=== PATIENT | female | born 1970 | race Caucasian/White ===

== ENCOUNTER → 2018-07-31 10:14 | Outpatient (CLI) | payer OTHER, SELFPAY ==
--- NOTE | 2018-07-31 10:17 | DI.RAD.S_ITS ---
PROCEDURE: XR HIP W PEL IF DONE LT 2V INDICATIONS: Night sweats, Family Hx of Non-hodgkins lymphoma TECHNIQUE: AP pelvis with lateral view(s) of the left hip(s). COMPARISON: None. FINDINGS: Bones: No fractures or dislocations. Pelvic ring appears intact. No suspicious bony lesions. Moderate bilateral hip joint degeneration. Soft tissues: The visualized bowel gas pattern is normal. No suspicious soft tissue calcifications. IMPRESSION: Moderate bilateral hip joint degeneration. Dictated by: Elliott Toney M.D. on 07/31/2018 at 14:07 Approved by: Elliott Toney M.D. on 07/31/2018 at 14:09
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
== END ==
PROVIDERS: Family Provider Family Medicine; PCP Family Medicine; Visit Provider Family Medicine
DX: M25.552 Pain in left hip (principal); M16.0 Bilateral primary osteoarthritis of hip; R61 Generalized hyperhidrosis; Z80.7 Family history of other malignant neoplasms of lymphoid, hematopoietic and related tissues
CPT/HCPCS: 71046; 73502

== ENCOUNTER → 2018-08-01 09:10 | Outpatient (CLI) | payer OTHER, SELFPAY ==
[2018-08-01 10:10] LABS: Add Manual Diff / Slide Review NO; Basophils Absolute Auto 100 /uL (0-100); Basophils Percent Auto 1.7 % (0-2); Eosinophils Absolute Auto 100 /uL (0-450); Eosinophils Percent Auto 2.1 % (2-4); Hematocrit 43.3 % (36-46); Hemoglobin 14.1 g/dL (12.0-16.0); Lymphocytes Absolute Auto 1000 /uL (1100-4500); Mean Corpuscular HGB Conc 32.5 % (30-36); Mean Corpuscular Hemoglobin 28.9 PG (26-34); Mean Corpuscular Volume 88.7 fL (80-100); Monocytes Absolute Auto 300 /uL (0-900); Monocytes Percent Auto 9.6 % (3-14); Neutrophils Absolute Auto 2100 /uL (1500-7000); Neutrophils Percent Auto 58.6 % (50-75); Platelet Count 212 X10^3/uL (150-400); Red Blood Cell Count 4.88 X10^6/uL (4.0-5.2); White Blood Cell Count 3.6 X10^3/uL (4.5-11.0)
[2018-08-01 10:18] LABS: Alanine Aminotransferase 28 IU/L (9-52); Albumin 4.4 g/dL (3.5-5.0); Albumin Globulin Ratio 1.4 (1.0-2.8); Alkaline Phosphatase 62 U/L (38-126); Aspartate Aminotransferase 25 IU/L (14-36); BUN Creatinine Ratio 15.6 (6-22); Bilirubin Total 0.6 mg/dL (0.2-1.3); Blood Urea Nitrogen 14 mg/dL (7-17); Carbon Dioxide 28 mmol/L (22-32); Chloride 103 mmol/L (98-107); Estimated Glomerular Filt Rate > 60.0 mL/min (>60); Globulin 3.1 g/dL (1.7-4.1); Glucose 84 mg/dL (70-100); HEMOLYSIS < 15 (0-50); Potassium 4.2 mmol/L (3.4-5.1); Sodium 141 mmol/L (137-145); Total Protein 7.5 g/dL (6.3-8.2)
== END ==
PROVIDERS: PCP Family Medicine; Visit Provider Family Medicine
DX: R61 Generalized hyperhidrosis (principal); Z80.7 Family history of other malignant neoplasms of lymphoid, hematopoietic and related tissues
CPT/HCPCS: 36415; 80053; 85025

== ENCOUNTER → 2018-11-04 13:56 | Outpatient (CLI) | payer OTHER, SELFPAY ==
[2018-11-04 15:14] LABS: Influenza A and B by PCR Rapid Negative (Negative)
== END ==
PROVIDERS: PCP Family Medicine; Visit Provider Physician Assistant
DX: R68.89 Other general symptoms and signs (principal)
CPT/HCPCS: 87400

== ENCOUNTER → 2021-04-26 09:34 | Outpatient (CLI) | payer OTHER, SELFPAY ==
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
== END ==
PROVIDERS: PCP Family Medicine; Referring Provider Nurse Practitioner Family; Visit Provider Nurse Practitioner Family
DX: M47.814 Spondylosis without myelopathy or radiculopathy, thoracic region (principal)
CPT/HCPCS: 72072

== ENCOUNTER → 2022-12-27 11:21 | Outpatient (CLI) | payer OTHER, SELFPAY | PROVIDERS: PCP Nurse Practitioner; Visit Provider Nurse Practitioner | DX: N72 Inflammatory disease of cervix uteri (principal) | CPT/HCPCS: 87070; 87205 ==

== ENCOUNTER → 2023-01-07 10:40 | Outpatient (CLI) | payer OTHER, SELFPAY ==
--- NOTE | 2023-01-07 10:41 | DI.MG.S_ITS ---
BILATERAL DIGITAL SCREENING MAMMOGRAM 3D/2D WITH CAD: 01/07/2023 CLINICAL: Routine screening. Baseline exam. Family history of breast cancer. No prior exams were available for comparison. Both breasts are heterogeneously dense, which may obscure small masses (category c / 51-75% glandular tissue). Current study was also evaluated with a Computer Aided Detection (CAD) system. No significant masses, calcifications, or other findings are seen in either breast. IMPRESSION: NEGATIVE There is no mammographic evidence of malignancy. A 1 year screening mammogram is recommended. Based on Tyrer-Cuzick model (a risk assessment model), the patient's lifetime risk is 21.6% and her 10 year risk is 6.2%. If a patient has an elevated risk, a more comprehensive evaluation should be considered and/or a referral to a genetic counselor. The [place] [employer], [employer], and NCCN Guidelines advise the consideration of Breast MRI as an adjunct to screening mammography in patients whose Lifetime risk to develop breast cancer is 20% or higher. This exam was interpreted at Station ID: [id number]. NOTE: For mammograms, a report in lay terms will be sent to the patient. Approximately 15% of breast malignancies will not be visualized mammographically. In the management of a palpable breast mass, a negative mammogram must not discourage biopsy of a clinically suspicious lesion. Electronically Signed By: Mohsen whitney/jessica:01/09/2023 08:19:24 letter sent: Normal Exam ACR BI-RADS Category 1: Negative [id number]
== END ==
PROVIDERS: PCP Nurse Practitioner; Referring Provider Nurse Practitioner; Visit Provider Nurse Practitioner
DX: Z12.31 Encounter for screening mammogram for malignant neoplasm of breast (principal); Z80.3 Family history of malignant neoplasm of breast
CPT/HCPCS: 77063; 77067

== ENCOUNTER → 2023-03-14 17:33 | Outpatient (CLI) | payer OTHER, SELFPAY | PROVIDERS: PCP Nurse Practitioner; Visit Provider Physician Assistant | DX: N89.8 Other specified noninflammatory disorders of vagina (principal); R30.0 Dysuria | CPT/HCPCS: 87086; 87210 ==

== ENCOUNTER 2023-12-25 17:07 | Emergency (ER) | payer OTHER, SELFPAY ==
[2023-12-25] VITALS (14 sets, daily range): BP systolic 97–122; BP diastolic 59–75; PULSE 68–90; RESP 11–21; TEMP 36.4; O2SAT 95–100; BMI 23.5
--- NOTE | 2023-12-25 17:31 | EKG_ITS ---
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
[2023-12-25 17:45] LABS: Add Manual Diff / Slide Review NO; Basophils Absolute Auto 100 /uL (0-100); Basophils Percent Auto 0.7 % (0-2); Eosinophils Absolute Auto 100 /uL (0-450); Eosinophils Percent Auto 0.8 % (2-4); Hematocrit 42.9 % (36-46); Hemoglobin 14.3 g/dL (12.0-16.0); Lymphocytes Absolute Auto 1200 /uL (1100-4500); Lymphocytes Percent Auto 14.9 % (25-40); Mean Corpuscular HGB Conc 33.4 % (30-36); Mean Corpuscular Hemoglobin 29.6 PG (26-34); Mean Corpuscular Volume 88.6 fL (80-100); Monocytes Absolute Auto 700 /uL (0-900); Monocytes Percent Auto 8.6 % (3-14); Neutrophils Absolute Auto 6000 /uL (1500-7000); Platelet Count 245 X10^3/uL (150-400); Red Blood Cell Count 4.84 X10^6/uL (4.0-5.2); Red Cell Distribution Width 13.9 % (11.6-14.8)
[2023-12-25 17:52] LABS: Alanine Aminotransferase 17 IU/L (<35); Albumin 4.7 g/dL (3.5-5.0); Albumin Globulin Ratio 1.5 (1.0-2.8); Alkaline Phosphatase 75 U/L (38-126); Aspartate Aminotransferase 25 IU/L (14-36); BUN Creatinine Ratio 9.5 (6-22); Bilirubin Total 0.7 mg/dL (0.2-1.3); Blood Urea Nitrogen 9 mg/dL (7-17); Calcium 9.1 mg/dL (8.4-10.2); Carbon Dioxide 23 mmol/L (22-32); Chloride 105 mmol/L (98-107); Estimated Glomerular Filt Rate > 60 mL/min (>60); Globulin 3.1 g/dL (1.7-4.1); Glucose 98 mg/dL (70-100); HEMOLYSIS < 15 (0-50); Lipase 264 U/L (23-300); Potassium 3.9 mmol/L (3.4-5.1); Sodium 140 mmol/L (137-145); Total Protein 7.8 g/dL (6.3-8.2)
--- NOTE | 2023-12-25 19:49 | DI.CT.S_ITS ---
PROCEDURE: CT ABDOMEN PELVIS W CON INDICATIONS: abd pain TECHNIQUE: After the administration of intravenous contrast, axial sections acquired from the lung bases to the pubic symphysis. Coronal and sagittal reformats were performed. For radiation dose reduction, the following was used: automated exposure control, adjustment of mA and/or kV according to patient size. COMPARISON: None. FINDINGS: Image quality: Diagnostic. Lower Chest: Bibasilar atelectasis. No hiatal hernia. Heart size is normal. ABDOMEN: Liver: No solid mass. Gallbladder: No radiopaque gallstones or wall thickening. Suggestion of mild pericholecystic fluid near the gallbladder neck and common bile duct. Biliary ducts: No biliary dilation. Pancreas: No ductal dilation. No peripancreatic inflammatory changes. Spleen: Size is within normal limits. Adrenal Glands: No adrenal nodules. Kidneys and Ureters: No hydronephrosis. No solid mass. No complex renal cystic lesion which requires follow up. Stomach and Bowel: Normal colonic caliber, without significant wall thickening. Nonspecific fluid-filled loops of small bowel without significant wall thickening. No bowel obstruction. Normal appendix. Peritoneum: No abnormal intraperitoneal fluid. No free air. Ventral Wall: There is a fat-containing umbilical hernia without acute inflammation. Abdominal Nodes: No retroperitoneal or mesenteric adenopathy by size criteria. Vessels: Aorta and inferior vena cava are normal in size. PELVIS: Pelvic Organs: Unremarkable. Bladder: No bladder wall thickening, accounting for underdistention. Pelvic Nodes: No enlarged lymph nodes. Miscellaneous: No inguinal hernias are seen. Small amount of pelvic free fluid likely physiologic. Bones: No aggressive osseous abnormality. Visualized osseous structures appear intact without acute fracture or focal destructive lesion. No acute compression fractures of the imaged spine. IMPRESSION: Mild pericholecystic fluid near the gallbladder neck and common bile duct without visible radiopaque gallstone or wall thickening. No significant gallbladder distension. Recommend clinical correlation for right upper quadrant abdominal pain. Further evaluation with ultrasound can be considered. Nonspecific fluid-filled loops of small bowel which may be seen with enteritis either infectious or inflammatory in etiology. No wall thickening or bowel obstruction. Normal appendix. No evidence for obstructive uropathy. Dictated by: Joni Smith M.D. on 12/25/2023 at 21:01 Approved by: Joni Smith M.D. on 12/25/2023 at 21:07
--- NOTE | 2023-12-25 19:57 | ED_ITS ---
HPI - Abdominal Pain General Chief Complaint: Abdominal Pain Stated Complaint: groin pain/abd bloating/hands numb Time Seen by Provider: 12/25/23 19:49 Source: patient Mode of arrival: Ambulatory History of Present Illness HPI narrative: 53-year-old female with one week duration left groin area discomfort. She denies any injury or trauma new activities. She does not recall any history of kidney stones, no previous groin hernias, no pushing out or masses noted on her exam. He has tried [id number] medications with no relief. Pain not particularly worse with left hip movements or with truncal movements or with Valsalva lifting like activities. She has had ear problems, was diagnosed with a possible infection by phone from her PCP last week, took 1 dose of oral Bactrim, had a rash, stopped the medication, no further antibiotics. She has not having diarrhea. No black or red stools. No nausea or vomiting. She has no pain with urination. Denies history of previous problems with diverticulitis or colitis. Related Data Home Medications Medication Instructions Recorded Confirmed fluticasone propionate 50 1 spray intranasal DAILY 12/27/22 08/29/23 mcg/actuation nasal spray,suspension Allergies Allergy/AdvReac Type Severity Reaction Status Date / Time No Known Drug Allergies Allergy Verified 08/29/23 09:07 Review of Systems Review of Systems Narrative: per HPI Patient History Medical History History of frequent ear infections Sinusitis chronic, frontal Surgical History History of ear surgery History of third molar tooth extraction Status post colposcopy (06/28/10) Family History Father Age: 75 Hypertension Social History marital status: number of children: 1 household members: children (teen son) 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 HEAD: Atraumatic. Normocephalic. EYES: Pupils equal round and reactive. Extraocular motions intact. No scleral icterus. No injection or drainage. ENT: Nose without bleeding, purulent drainage. Throat without erythema, tonsillar hypertrophy or exudate. Airway patent. NECK: Trachea midline. Non tender CARDIOVASCULAR: Regular rate and rhythm without murmurs, gallops, or rubs. RESPIRATORY: Clear to auscultation. Breath sounds equal bilaterally. No wheezes, rales, or rhonchi. GASTROINTESTINAL: Abdomen soft, non-tender, nondistended. EXTREMITIES: No edema or joint tenderness. BACK: Nontender without deformity or crepitance. No flank tenderness. NEURO: AOx3. SKIN: No rash or erythema of visible areas Initial Vital Signs Initial Vital Signs: Vital Signs Temperature 97.5 F L 12/25/23 17:10 Pulse Rate 78 12/25/23 17:10 Respiratory Rate 18 12/25/23 17:10 Blood Pressure 121/63 12/25/23 17:10 Pulse Oximetry 99 12/25/23 17:10 Oxygen Delivery Method Room Air 12/25/23 17:10 Course Orders Ordered: Discontinued Medications Ondansetron HCl (Ondansetron 4 Mg/2 Ml Inj) 4 mg IV NOW PRN PRN Reason: Nausea And Vomiting Ondansetron HCl (Ondansetron 4 Mg Odt) 4 mg PO NOW PRN PRN Reason: Nausea And Vomiting Vital Signs Vital signs: Vital Signs - 8 hr 12/26/23 00:00 12/26/23 00:18 12/26/23 00:18 Pulse Rate 71 68 Respiratory Rate 14 20 Blood Pressure 119/57 L Pulse Oximetry 97 98 Oxygen Delivery Method Room Air MDM - Abdominal Pain Lab Data Attestation: I reviewed the patient's lab results. 12/25/23 17:26 12/25/23 17:30 Labs: Lab Results 12/25/23 12/25/23 Range/Units 17:26 17:30 WBC 8.0 (4.5-11.0) X10^3/uL RBC 4.84 (4.0-5.2) X10^6/uL Hgb 14.3 (12.0-16.0) g/dL Hct 42.9 (36-46) % MCV 88.6 (80-100) fL MCH 29.6 (26-34) PG MCHC 33.4 (30-36) % RDW 13.9 (11.6-14.8) % Plt Count 245 (150-400) X10^3/uL Neut % (Auto) 75.0 (50-75) % Lymph % (Auto) 14.9 L (25-40) % [place] % (Auto) 8.6 (3-14) % Eos % (Auto) 0.8 L (2-4) % Baso % (Auto) 0.7 (0-2) % Neut # (Auto) 6000 (1982-2689) /uL Lymph # (Auto) 1200 (3843-5123) /uL [place] # (Auto) 700 (0-900) /uL Eos # (Auto) 100 (0-450) /uL Baso # (Auto) 100 (0-100) /uL Sodium 140 (137-145) mmol/L Potassium 3.9 (3.4-5.1) mmol/L Chloride 105 (98-107) mmol/L Carbon Dioxide 23 (22-32) mmol/L BUN 9 (7-17) mg/dL Creatinine 0.95 (0.52-1.04) mg/dL Estimated GFR > 60 (>60) mL/min BUN/Creatinine Ratio 9.5 (6-22) Glucose 98 (70-100) mg/dL Calcium 9.1 (8.4-10.2) mg/dL Total Bilirubin 0.7 (0.2-1.3) mg/dL AST 25 (14-36) IU/L ALT 17 (<35) IU/L Alkaline Phosphatase 75 (38-126) U/L Total Protein 7.8 (6.3-8.2) g/dL Albumin 4.7 (3.5-5.0) g/dL Globulin 3.1 (1.7-4.1) g/dL Albumin/Globulin Ratio 1.5 (1.0-2.8) Lipase 264 (23-300) U/L Point of care testing: Urine Dip Bedside Urine Glucose Negative Bedside Urine Bilirubin - Negative Bedside Urine Ketone - Negative Urine Specific [place] 1.005 Bedside Urine Occult Blood - Negative Bedside Urine pH 6.5 Bedside Urine Protein - Negative Bedside Urine Urobilinogen - Negative Bedside Urine Nitrite - Negative Bedside Urine Leukocytes - Negative Esterase Imaging Data CT scan - abdomen/pelvis: Radiologist's Impression: [address] [address] [address] Scan Report Signed Patient: Cesilia Aranda MR#: [id number] : 1970 Acct:[id number] Age/Sex: 53 / F Date of Service: 12/25/23 Loc: ED Accession Number: [id number] Procedure: CT abdomen pelvis w con Ordering Provider: He Lozano MD PROCEDURE: CT ABDOMEN PELVIS W CON INDICATIONS: abd pain TECHNIQUE: After the administration of intravenous contrast, axial sections acquired from the lung bases to the pubic symphysis. Coronal and sagittal reformats were performed. For radiation dose reduction, the following was used: automated exposure control, adjustment of mA and/or kV according to patient size. COMPARISON: None. FINDINGS: Image quality: Diagnostic. Lower Chest: Bibasilar atelectasis. No hiatal hernia. Heart size is normal. ABDOMEN: Liver: No solid mass. Gallbladder: No radiopaque gallstones or wall thickening. Suggestion of mild pericholecystic fluid near the gallbladder neck and common bile duct. Biliary ducts: No biliary dilation. Pancreas: No ductal dilation. No peripancreatic inflammatory changes. Spleen: Size is within normal limits. Adrenal Glands: No adrenal nodules. Kidneys and Ureters: No hydronephrosis. No solid mass. No complex renal cystic lesion which requires follow up. Stomach and Bowel: Normal colonic caliber, without significant wall thickening. Nonspecific fluid-filled loops of small bowel without significant wall thickening. No bowel obstruction. Normal appendix. Peritoneum: No abnormal intraperitoneal fluid. No free air. Ventral Wall: There is a fat-containing umbilical hernia without acute inflammation. Abdominal Nodes: No retroperitoneal or mesenteric adenopathy by size criteria. Vessels: Aorta and inferior vena cava are normal in size. PELVIS: Pelvic Organs: Unremarkable. Bladder: No bladder wall thickening, accounting for underdistention. Pelvic Nodes: No enlarged lymph nodes. Miscellaneous: No inguinal hernias are seen. Small amount of pelvic free fluid likely physiologic. Bones: No aggressive osseous abnormality. Visualized osseous structures appear intact without acute fracture or focal destructive lesion. No acute compression fractures of the imaged spine. IMPRESSION: Mild pericholecystic fluid near the gallbladder neck and common bile duct without visible radiopaque gallstone or wall thickening. No significant gallbladder distension. Recommend clinical correlation for right upper quadrant abdominal pain. Further evaluation with ultrasound can be considered. Nonspecific fluid-filled loops of small bowel which may be seen with enteritis either infectious or inflammatory in etiology. No wall thickening or bowel obstruction. Normal appendix. No evidence for obstructive uropathy. Dictated by: Joni Smith M.D. on 12/25/2023 at 21:01 Approved by: Joni Smith M.D. on 12/25/2023 at 21:07 RUQ Abdominal US: Radiologist's Impression: [address] [address] Ultrasound Report Signed Patient: Cesilia Aranda MR#: [id number] : 1970 Acct:[id number] Age/Sex: 53 / F Date of Service: 12/25/23 Loc: ED Accession Number: [id number] Procedure: US abdomen limited Ordering Provider: He Lozano MD PROCEDURE: US ABDOMEN LIMITED INDICATIONS: PERICHOLECYSTIC FLUID ON CT TECHNIQUE: Real-time scanning was performed of the abdominal and retroperitoneal organs, with image documentation. COMPARISON: [facility], CT, CT ABDOMEN PELVIS W CON, 12/25/2023, 20:14. FINDINGS: Liver: Liver is normal in size and homogeneous in echotexture. Gallbladder: No gallstones. Mild focal gallbladder wall thickening measuring up to 4 mm. Minimal pericholecystic fluid. Negative sonographic Deluca sign. Biliary ducts: Intrahepatic bile ducts are non-dilated. Extrahepatic bile duct caliber measures 3 mm. Normal is 6-7 mm or less in diameter, or 10 mm or less post-cholecystectomy. Pancreas: Visualized portions of the pancreas are sonographically normal. Miscellaneous: No free abdominal fluid. IMPRESSION: Minimal pericholecystic fluid and mild focal gallbladder wall thickening. No evidence for cholelithiasis. No sonographic evidence for acute cholecystitis. Dictated by: Joni Smith M.D. on 12/25/2023 at 23:10 Approved by: Joni Smith M.D. on 12/25/2023 at 23:13 ECG Data Attestation: I personally reviewed and interpreted this ECG as follows: Interpretation: Normal sinus rhythm with rate of 72, no obvious ST segment elevation or depression changes. T-wave flattening lead 3 upright however another contiguous leads 2 and lead AVF inferior leads. MO 126, QRS 76, QTC 413. MDM Narrative Medical decision making narrative: 53-year-old female with left groin area discomfort, on exam there is no obvious hernia, she has normal range of motion of her left hip, some tenderness left lower quadrant. DX consider diverticulitis, colitis, inguinal hernia, lymphadenopathy, referred pain from left hip or other orthopedic problem, constipation, UTI, gynecological etiology, other. Screening labs white blood cell count normal, urine dip negative, LFTs normal, lipase normal. CT abdomen and pelvis imaging requested, patient agrees. She declines pain medication when directly asked. CT abdomen pelvis with IV contrast. Impressions: ?Mild pericholecystic fluid near the gallbladder neck and common bile duct without visible radiopaque gallstone or wall thickening. No significant gallbladder distention. Recommend clinical correlation for right upper quadrant abdominal pain. Further evaluation with ultrasound can be considered. Nonspecific fluid-filled loops of small bowel maybe seen with enteritis either infectious or inflammatory in etiology. No wall thickening or bowel obstruction. Normal appendix. No evidence for obstructive uropathy. ? See radiology report Report shared with patient, right upper quadrant findings do not correlate with her left lower quadrant left groin area of symptoms. No tenderness right upper quadrant. Unclear significance. Consider right upper quadrant ultrasound imaging. Right upper quadrant shows minimal pericholecystic fluid, no thickening, no stones, not consistent with cholecystitis per radiologist's read. No common bile duct abnormalities described. Report details discussed with patient. She does not seem to have upper quadrant discomfort on exam. Unclear significance of the small minimal pericholecystic fluid, likely not related to left lower quadrant predominant area of discomfort. No findings in that area on CT scanning. She would like to go home, she has not want any further workup for now. She will follow up with her regular doctor next week as scheduled. Also given contact information for Dr. Hernandez surgery on-call, she would like to pursue consultation regarding left lower quadrant and right upper quadrant concerns outlined above. Tylenol as needed. Consider antacid [id number]. Discharged home per patient request. Critical Care Time Critical Care Time Critical Care Time: Yes Total Critical Care Time: 31 Attestation: The high probability of a clinically significant, sudden or life threatening deterioration of the [abdominopelvic, gastrointestinal] system(s) required my full and direct attention, intervention and personal management. The aggregate critical care time was [31] minutes. This time is in addition to time spent performing reported procedures but includes the following: [x] Data Review and interpretation [x] Patient assessment and monitoring of vital signs [x] Documentation [x] Medication orders and management Discharge Plan Departure Patient Disposition: Home Clinical Impression: Abdominal pain Activity Restrictions/Additional Instructions: Abdominal pain predominantly left lower quadrant of unclear cause, laboratory studies largely unremarkable. Urinalysis negative. CT scan abdomen and pelvis showed no left lower quadrant pathology, also the hip joint in that area seemed to be unaffected, no mention of any hernias, no mention of any urinary stones or any other acute changes to explain the left lower quadrant area symptoms. There was mentioned on the CT scan of some small amount of fluid around the gallbladder, not in an area seemed to have discomfort. Ultrasound imaging of the right upper quadrant was additionally done, showed minimal fluid around the gallbladder which was not thickened, no gallstones mentioned, no dilated common bile ducts, no acute changes. The radiology report did not suggest that this looked like an acute infectious process in that area. Unclear cause of these fluid around the gallbladder, unclear how it is related to your current abdominal pain if at all. Consider surgery consultation regarding your left lower quadrant discomfort. Follow up with your regular doctor appointment upcoming this week. Contact information given for general surgery for outpatient follow up consultation if needed. Return earlier to this/nearest emergency department for any change worsening symptoms or any concerns prior Prescriptions: No Action fluticasone propionate 50 mcg/actuation spray,suspension 1 spray intranasal DAILY Rx Instructions: administer into each nostril Referrals: Joyce Torres ARNP [Primary Care Provider] - Gerald Hernandez MD [Physician] - Stand Alone Forms: Patient Portal/API
--- NOTE | 2023-12-25 22:09 | DI.US.S_ITS ---
PROCEDURE: US ABDOMEN LIMITED INDICATIONS: PERICHOLECYSTIC FLUID ON CT TECHNIQUE: Real-time scanning was performed of the abdominal and retroperitoneal organs, with image documentation. COMPARISON: [facility], CT, CT ABDOMEN PELVIS W CON, 12/25/2023, 20:14. FINDINGS: Liver: Liver is normal in size and homogeneous in echotexture. Gallbladder: No gallstones. Mild focal gallbladder wall thickening measuring up to 4 mm. Minimal pericholecystic fluid. Negative sonographic Deluca sign. Biliary ducts: Intrahepatic bile ducts are non-dilated. Extrahepatic bile duct caliber measures 3 mm. Normal is 6-7 mm or less in diameter, or 10 mm or less post-cholecystectomy. Pancreas: Visualized portions of the pancreas are sonographically normal. Miscellaneous: No free abdominal fluid. IMPRESSION: Minimal pericholecystic fluid and mild focal gallbladder wall thickening. No evidence for cholelithiasis. No sonographic evidence for acute cholecystitis. Dictated by: Joni Smith M.D. on 12/25/2023 at 23:10 Approved by: Joni Smith M.D. on 12/25/2023 at 23:13
[2023-12-26] VITALS: PULSE 71; RESP 14; O2SAT 97
[2023-12-26 00:18] VITALS: BP 119/57; PULSE 68; RESP 20; O2SAT 98
== END 2023-12-26 00:24 | disposition home or self-care (01) ==
PROVIDERS: Emergency Medicine; Emergency Provider Emergency Medicine; PCP Nurse Practitioner
DX: R10.32 Left lower quadrant pain (principal)
CPT/HCPCS: 36415; 74177; 76705; 80053; 81003; 83690; 85025; 93005; 99283; 99284; Q9967

== ENCOUNTER → 2025-01-07 11:09 | Outpatient (CLI) | payer OTHER, SELFPAY | PROVIDERS: PCP Family Medicine; Visit Provider Nurse Practitioner Family | DX: R10.2 Pelvic and perineal pain (principal) | CPT/HCPCS: 87086 ==

== ENCOUNTER → 2025-01-07 11:21 | Outpatient (CLI) | payer OTHER, SELFPAY ==
--- NOTE | 2025-01-07 11:25 | DI.RAD.S_ITS ---
PROCEDURE: XR HIP W PEL IF DONE RT 2V INDICATIONS: Right hip pain TECHNIQUE: AP view of the pelvis and frogleg view of the right hip were acquired. COMPARISON: [facility], CR, XR HIP W PEL IF DONE LT 2V, 07/31/2018, 10:35. FINDINGS: Bones: There are no osseous abnormalities. SI and hip joints: Normal in width and alignment without arthritic change Soft tissues: No soft tissue swelling, calcification or mass. IMPRESSION: Normal pelvis Dictated by: Christo Garvin M.D. on 01/08/2025 at 10:45 Approved by: Christo Garvin M.D. on 01/08/2025 at 10:46
== END ==
PROVIDERS: PCP Family Medicine; Referring Provider Nurse Practitioner Family; Visit Provider Nurse Practitioner Family
DX: N39.0 Urinary tract infection, site not specified (principal)
CPT/HCPCS: 73502; 87086

== ENCOUNTER → 2025-02-15 18:39 | Outpatient (CLI) | payer OTHER, SELFPAY | PROVIDERS: Family Provider Family Medicine; PCP Family Medicine; Visit Provider Chiropractor | DX: H92.02 Otalgia, left ear (principal) | CPT/HCPCS: 87070; 87205 ==